=== PATIENT | female | born 2000 | race African-American/Black ===

== ENCOUNTER 2020-01-21 08:12 | Emergency (ER) | payer OTHER ==
[~2020-01-21] VITALS: Ht 170.2 cm; Wt 70.5 kg
[2020-01-21] MEDS ORDERED: IV NORMAL SALINE 1,000ML 1,000 ML IV ONE (08:30)
--- NOTE | 2020-01-21 08:53 | PHYS DOC ---
Past History Past Medical History: No Pertinent History Past Surgical History: No Surgical History Alcohol Use: None General Adult EDM: Chief Complaint: CHEST PAIN HPI: HPI: 19-year-old female presents with chest pain. She states that her pain started while she was trying to sleep. Started about 3 AM. She describes it as a burning in the center of her chest. She rates it a 7 out of 10. She denies diaphoresis or shortness of breath. She denies drug use. No cardiac history. She has had heartburn in the past, but not frequently and not severe. She denies fever chills. She has had a couple episodes of vomiting overnight that seemed to start for no reason. She was feeling fine yesterday. Review of Systems: Review of Systems: Constitutional: Denies fever or chills Eyes: Denies change in visual acuity HENT: Denies nasal congestion or sore throat Respiratory: Denies cough or shortness of breath Cardiovascular: Chest pain GI: Denies abdominal pain, nausea, vomiting, bloody stools or diarrhea : Denies dysuria Musculoskeletal: Denies back pain or joint pain Integument: Denies rash Neurologic: Denies headache, focal weakness or sensory changes Endocrine: Denies polyuria or polydipsia Lymphatic: Denies swollen glands Psychiatric: Denies depression or anxiety Heart Score: HEART Score for Chest Pain: HEART Score for Chest Pain Response (Comments) Value History Slighlty/Non-Suspicious 0 ECG Normal 0 Age < 45 0 Risk Factors No Risk Factors 0 Troponin < Normal Limit 0 Total 0 Risk Factors: Risk Factors: DM, Current or recent (<one month) smoker, HTN, HLP, family history of CAD, obesity. Risk Scores: Score 0 - 3: 2.5% MACE over next 6 weeks - Discharge Home Score 4 - 6: 20.3% MACE over next 6 weeks - Admit for Clinical Observation Score 7 - 10: 72.7% MACE over next 6 weeks - Early Invasive Strategies Current Medications: Current Meds: Current Medications Medications (Trade) Dose Ordered Sig/Romana Start Time Stop Time Status Last Admin Dose Admin Sodium Chloride 1,000 ml @ 1,000 mls/hr 1X ONCE 01/21/20 08:30 01/21/20 09:29 Allergies: Allergies: Allergies Coded Allergies Type Severity Reaction Last Updated Verified No Known Drug Allergies 01/21/20 No Physical Exam: PE: Constitutional: Well developed, well nourished, no acute distress, non-toxic appearance. [] HENT: Normocephalic, atraumatic, bilateral external ears normal, oropharynx moist, no oral exudates, nose normal. [] Eyes: PERRLA, EOMI, conjunctiva normal, no discharge. [] Neck: Normal range of motion, no tenderness, supple, no stridor. [] Cardiovascular:Heart rate regular rhythm, no murmur [] Lungs & Thorax: Bilateral breath sounds clear to auscultation [] Abdomen: Bowel sounds normal, soft, no tenderness, no masses, no pulsatile masses. [] Skin: Warm, dry, no erythema, no rash. [] Back: No tenderness, no CVA tenderness. [] Extremities: No tenderness, no cyanosis, no clubbing, ROM intact, no edema. [] Neurologic: Alert and oriented X 3, normal motor function, normal sensory function, no focal deficits noted. [] Psychologic: Affect normal, judgement normal, mood normal. [] Current Patient Data: Vital Signs: Vital Signs Date Time Temp Pulse Resp B/P (MAP) Pulse Ox O2 Delivery O2 Flow Rate FiO2 01/21/20 08:13 98.0 70 16 96/49 (65) 97 Room Air EKG: EKG: Sinus rhythm, rate 66, normal axis, no ST elevations or depressions. [] Radiology/Procedures: Radiology/Procedures: [] Impressions: CHEST AP ONLY Clinical Indication: Reason: CHEST PAIN / Spl. Instructions: / History: Comparison: None. Findings: The cardiomediastinal silhouette is normal. Lungs are clear. There is no pneumothorax. No pleural effusion is appreciated. No acute bone abnormality. IMPRESSION: No acute cardiopulmonary process. Electronically signed by: Ang De La Cruz MD (01/21/2020 8:59 AM) [id number] DICTATED AND SIGNED BY: ANG DE LA CRUZ MD DATE: 01/21/20 0859 CC: VICENTE GRANADO DO; ANGELICA LEI APRN ~ Course & Med Decision Making: Course & Med Decision Making Pertinent Labs and Imaging studies reviewed. (See chart for details) The patient's EKG is unremarkable. Her chest x-ray is unremarkable. Her labs are unremarkable. Her troponin is negative. This is the likely heartburn and/or pain from her vomiting. I have given her 20 mg of Pepcid and a GI cocktail. Her chest pain is improved. She has a bit of a headache and stomachache, and feels like she may just be coming down with a viral illness. This is possible. I do not see a likely cardiopulmonary process causing her symptoms. She is stable for discharge at this time. I will discharge her with a prescription for Zofran. [] Dragon Disclaimer: Dragon Disclaimer: This electronic medical record was generated, in whole or in part, using a voice recognition dictation system. Departure Departure: Impression: Primary Impression: Chest pain Qualified Codes: R07.9 - Chest pain, unspecified Additional Impression: Viral syndrome Disposition: HOME/RESIDENCE PRIOR TO ADM Condition: STABLE Referrals: ANGELICA LEI APRN (PCP) Patient Instructions: Chest Pain (Nonspecific), [id number]-[id number], Viral Syndrome Scripts Ondansetron (ONDANSETRON ODT) 4 Mg Tab.rapdis 1 TAB PO PRN Q6-8HRS PRN for VOMITING, #16 TAB Prov: VICENTE GRANADO DO 01/21/20 Justification of Admission: Justification of Admission: Justification of Admission Dx: No VICENTE GRANADO DO Jan 21, 2020 08:53
[2020-01-21 08:55] LABS: BASO % 0 % (0-3); EOS % 0 % (0-3); HEMATOCRIT 41.4 % (36.0-47.0); HEMOGLOBIN 13.8 g/dL (12.0-15.5); LYMPH # 1.7 x10^3/uL (1.0-4.8); LYMPH % 29 % (24-48); MEAN CORPUSCULAR HEMOGLOBIN 30 pg (25-35); MEAN CORPUSCULAR HGB CONC 33 g/dL (31-37); MEAN CORPUSCULAR VOLUME 89 fL (79-100); MONO # 0.5 x10^3/uL (0.0-1.1); MONO % 8 % (0-9); NEUT # 3.7 x10^3uL (1.8-7.7); NEUT % 62 % (31-73); PLATELET COUNT 278 x10^3/uL (140-400); RED BLOOD COUNT 4.66 x10^6/uL (3.50-5.40); RED CELL DISTRIBUTION WIDTH 13.7 % (11.5-14.5); WHITE BLOOD COUNT 5.9 x10^3/uL (4.0-11.0)
[2020-01-21] MEDS ORDERED: LIDO:MAALOX 1:1 20 ML SINGLE DOSE. PO ONE (09:00)
[2020-01-21] MEDS ORDERED: FAMOTIDINE 20 MG/2 ML VIAL IVP ONE (09:00)
--- NOTE | 2020-01-21 09:02 | RAD ---
CHEST AP ONLY Clinical Indication: Reason: CHEST PAIN / Spl. Instructions: / History: Comparison: None. Findings: The cardiomediastinal silhouette is normal. Lungs are clear. There is no pneumothorax. No pleural effusion is appreciated. No acute bone abnormality. IMPRESSION: No acute cardiopulmonary process. Electronically signed by: Ang Elizabeth MD (01/21/2020 8:59 AM) [id number]
[2020-01-21 09:05] LABS: ALBUMIN 3.9 g/dL (3.4-5.0); ALBUMIN/GLOBULIN RATIO 0.8 (1.0-1.7); CALCIUM 9.6 mg/dL (8.5-10.1); CREATININE 0.9 mg/dL (0.6-1.0); GFR 97.6; POTASSIUM 3.9 mmol/L (3.5-5.1); TOTAL PROTEIN 8.5 g/dL (6.4-8.2)
[2020-01-21] MEDS ORDERED: ONDANSETRON PF 4 MG/2 ML VIAL. IVP ONE (09:30)
[2020-01-21] MEDS ORDERED: ONDANSETRON PF 4 MG/2 ML VIAL. ONE (09:30)
--- NOTE | 2020-01-21 09:44 | EKG ---
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
[2020-01-21] MEDS ORDERED: ONDA4TAB12 PO (10:45)
[2020-01-21 11:00] VITALS: BP 134/69
[2020-01-21] MEDS ORDERED: PNV1TABL25 PO (23:25)
[2020-01-21] MEDS ORDERED: CEPH-263 PO (23:25)
[2020-01-21] MEDS ORDERED: PROM12.58 PO (23:27)
== END 2020-01-21 11:06 | disposition home or self-care (01) ==
LOC: ER 08:12
DX: R07.89 Other chest pain (principal); B34.9 Viral infection, unspecified; R11.10 Vomiting, unspecified
CPT/HCPCS: 36415; 71045; 80053; 84484; 85025; 93005; 96361; 96374; 96375; 99285; J2405; J3490; J7030

== ENCOUNTER 2020-01-21 22:25 | Emergency (ER) | payer OTHER ==
[~2020-01-21] VITALS: Ht 170.2 cm; Wt 70.5 kg
[~2020-01-21 22:25] MED LIST: ONDA4TAB12 PO
--- NOTE | 2020-01-21 22:30 | PHYS DOC ---
Past History Past Medical History: No Pertinent History Past Surgical History: No Surgical History Smoking: Non-smoker Alcohol Use: None General Adult EDM: Chief Complaint: abdominal discomfort HPI: HPI: Patient is a 19 year old female who presents for evaluation of generalized abdominal discomfort as well as nausea. This is the second time she is been to this ER in less than 24 hours. At that time she was evaluated for chest pain. Patient did have some episodes of vomiting today. Patient states she is here because she wants a test. Patient denies any vaginal bleeding or discharge. She states her last period was in December. Patient otherwise benign- appearing with stable vital signs. States she has not been in the past Review of Systems: Review of Systems: Constitutional: Denies fever or chills Eyes: Denies change in visual acuity HENT: Denies nasal congestion or sore throat Respiratory: Denies cough or shortness of breath Cardiovascular: recent chest pain, no edema GI: Mild abdominal pain with nausea and vomiting, no bloody stools or diarrhea : Denies dysuria Musculoskeletal: Denies back pain or joint pain Integument: Denies rash Neurologic: Denies headache, focal weakness or sensory changes Endocrine: Denies polyuria or polydipsia Lymphatic: Denies swollen glands Psychiatric: Denies depression or anxiety Heart Score: Risk Factors: Risk Factors: DM, Current or recent (<one month) smoker, HTN, HLP, family history of CAD, obesity. Risk Scores: Score 0 - 3: 2.5% MACE over next 6 weeks - Discharge Home Score 4 - 6: 20.3% MACE over next 6 weeks - Admit for Clinical Observation Score 7 - 10: 72.7% MACE over next 6 weeks - Early Invasive Strategies Allergies: Allergies: Allergies Coded Allergies Type Severity Reaction Last Updated Verified No Known Drug Allergies 01/21/20 No Physical Exam: PE: Constitutional: Well developed, well nourished, no acute distress, non-toxic appearance. [] HENT: Normocephalic, atraumatic, bilateral external ears normal, oropharynx moist, no oral exudates, nose normal. [] Eyes: PERRL, EOMI, conjunctiva normal, no discharge. [] Neck: Normal range of motion, no tenderness, supple, no stridor. [] Cardiovascular:Heart rate regular rhythm, no murmur [] Lungs & Thorax: Bilateral breath sounds clear to auscultation [] Abdomen: Bowel sounds normal, soft, no localized tenderness, no masses, no pulsatile masses. [] Skin: Warm, dry, no erythema, no rash. [] Back: No tenderness, no CVA tenderness. [] Extremities: No tenderness, no cyanosis, ROM intact, no edema. [] Neurologic: Alert and oriented X 3, normal motor function, normal sensory function, no focal deficits noted. [] Psychologic: Affect normal, judgement normal, mood normal. [] Current Patient Data: Labs: Laboratory Tests Test 01/21/20 22:35 01/21/20 22:49 Urine Collection Type Unknown Urine Color Yellow Urine Clarity Clear Urine pH 7.0 Urine Specific [place] 1.020 Urine Protein Neg Urine Glucose (UA) 250 mg/dL Urine Ketones (Stick) Neg mg/dL Urine Blood Neg Urine Nitrite Neg Urine Bilirubin Neg Urine Urobilinogen Dipstick 1.0 mg/dL Urine Leukocyte Esterase Small Urine RBC 0 /HPF Urine WBC 1-4 /HPF Urine Squamous Epithelial Cells Mod /LPF Urine Bacteria Few /HPF Bedside Urine HCG, Qualitative hcg positive EKG: EKG: [] Radiology/Procedures: Radiology/Procedures: [] Course & Med Decision Making: Course & Med Decision Making Pertinent Labs and Imaging studies reviewed. (See chart for details) [] Dragon Disclaimer: Dragon Disclaimer: This electronic medical record was generated, in whole or in part, using a voice recognition dictation system. Departure Departure: Impression: Primary Impression: Early stage of Additional Impressions: Acute UTI Nausea & vomiting Disposition: 01 HOME/RESIDENCE PRIOR TO ADM Condition: STABLE Referrals: ANGELICA LEI APRN (PCP) Patient Instructions: , Urinary Tract Infection, [id number] Additional Instructions: Drink plenty fluids, rest, call and see your REFORMATORY ATTENDANT right away and follow-up. You have a confirmed positive urine test. Scripts Promethazine Hcl (PROMETHAZINE HCL) 12.5 Mg Tablet 1 TAB PO Q6-8HRS for nausea and vomiting for 5 Days, #20 TAB 0 Refills Prov: ROSE SCHOFIELD DO 01/21/20 Pnv Cmb#95/Ferrous Fumarate/Fa ( TABLET) 1 Each Tablet 1 TAB PO DAILY for , #30 TAB 0 Refills Prov: ROSE SCHOFIELD DO 01/21/20 Cephalexin (KEFLEX) 250 Mg Capsule 1 CAP PO QID for UTI for 7 Days, #28 CAP 0 Refills Prov: ROSE SCHOFIELD DO 01/21/20 Justification of Admission: Justification of Admission: Justification of Admission Dx: N/A ROSE SCHOFIELD DO Jan 21, 2020 22:30
[2020-01-21 23:18] LABS: BACTERIA,URINE FEW /HPF (0-FEW); BILIRUBIN,URINE NEG (NEG); CLARITY,URINE CLEAR; COLOR,URINE YELLOW; GLUCOSE,URINE 250 mg/dL (NEG); NITRITE,URINE NEG (NEG); RBC,URINE 0 /HPF (0-2); SQUAMOUS EPITHELIAL CELL,UR MOD /LPF
[2020-01-21] MEDS ORDERED: PNV1TABL25 PO (23:25)
[2020-01-21] MEDS ORDERED: CEPH-263 PO (23:25)
[2020-01-21] MEDS ORDERED: PROM12.58 PO (23:27)
[2020-01-21 23:40] VITALS: BP 103/40
== END 2020-01-21 23:40 | disposition home or self-care (01) ==
LOC: ER 22:25
DX: O23.41 Unspecified infection of urinary tract in pregnancy, first trimester (principal); O21.9 Vomiting of pregnancy, unspecified; R10.9 Unspecified abdominal pain; Z3A.00 Weeks of gestation of pregnancy not specified
CPT/HCPCS: 81001; 81025; 99283

== ENCOUNTER 2020-06-25 20:44 | Emergency (ER) | payer OTHER ==
[~2020-06-25] VITALS: Ht 170.2 cm; Wt 70.5 kg
[~2020-06-25 20:44] MED LIST changes: +CEPH-263 PO; +PNV1TABL25 PO; +PROM12.58 PO
--- NOTE | 2020-06-25 21:06 | PHYS DOC ---
Past History Past Medical History: Anxiety, GERD (SHAYNE VERNON APRN) Past Surgical History: No Surgical History (SHAYNE VERNON APRN) Smoking: Non-smoker Alcohol Use: None (SHAYNE VERNON APRN) Adult General Chief Complaint Chief Complaint: CHEST PAIN HPI HPI Patient is a 20-year-old female patient with history of anxiety, acid reflux, who presents to the ED today complaining of a sharp 7 out of 10 epigastric and substernal chest pain, symptoms have been going on for 3 days. Also complaining of similar pain to the right upper quadrant. Denies any nausea or vomiting. Denies any fever, cough or congestion. Denies any chance she is . She states she believes this pain is from her acid reflux because she has been worked up before for the same pain and she was told she has acid reflux, she is currently on Prilosec and believes it is not working. (SHAYNE VERNON APRN) Review of Systems Review of Systems Constitutional: Denies fever or chills [] Eyes: Denies change in visual acuity, redness, or eye pain [] HENT: Denies nasal congestion or sore throat [] Respiratory: Denies cough or shortness of breath [] Cardiovascular: Reports chest pain GI: Reports right upper quadrant abdominal pain, denies nausea, vomiting, bloody stools or diarrhea [] : Denies dysuria or hematuria [] Musculoskeletal: Denies back pain or joint pain [] Integument: Denies rash or skin lesions [] Neurologic: Denies headache, focal weakness or sensory changes [] All other systems were reviewed and found to be within normal limits, except as documented in this note. (SHAYNE VERNON APRN) Allergies Allergies Allergies Coded Allergies Type Severity Reaction Last Updated Verified No Known Drug Allergies 06/25/20 No (SHAYNE VERNON APRN) Physical Exam Physical Exam Constitutional: Well developed, well nourished, no acute distress, non-toxic appearance. [] HENT: Normocephalic, atraumatic, bilateral external ears normal, oropharynx moist, no oral exudates, nose normal. [] Eyes: PERRLA, EOMI, conjunctiva normal, no discharge. [] Neck: Normal range of motion, no tenderness, supple, no stridor. [] Cardiovascular:Heart rate regular rhythm, no murmur [] Lungs & Thorax: Bilateral breath sounds clear to auscultation [] Abdomen: Bowel sounds normal, soft, no tenderness, no masses, no pulsatile masses. [] Skin: Warm, dry, no erythema, no rash. [] Back: No tenderness, no CVA tenderness. [] Extremities: No tenderness, no cyanosis, no clubbing, ROM intact, no edema. [] Neurologic: Alert and oriented X 3, normal motor function, normal sensory function, no focal deficits noted. [] Psychologic: Affect normal, judgement normal, mood normal. [] (SHAYNE VERNON APRN) Current Patient Data Vital Signs Vital Signs Date Time Temp Pulse Resp B/P (MAP) Pulse Ox O2 Delivery O2 Flow Rate FiO2 06/25/20 20:45 98.1 64 16 124/74 (91) 99 Room Air (SHAYNE VERNON APRN) EKG EKG [address] Jb Pool rhythm HR 62 no STEMI[] (SHAYNE VERNON APRN) Radiology/Procedures Radiology/Procedures [] (SHAYNE VERNON APRN) Heart Score HEART Score for Chest Pain: HEART Score for Chest Pain Response (Comments) Value History Slighlty/Non-Suspicious 0 ECG Normal 0 Age < 45 0 Risk Factors No Risk Factors 0 Troponin < Normal Limit 0 Total 0 Risk Factors: Risk Factors: DM, Current or recent (<one month) smoker, HTN, HLP, family history of CAD, obesity. Risk Scores: Risk Factors: DM, Current or recent (<one month) smoker, HTN, HLP, family history of CAD, obesity. (SHAYNE VERNON APRN) Course & Med Decision Making Course & Med Decision Making Pertinent Labs and Imaging studies reviewed. (See chart for details) This is a 20-year-old female patient with history of acid reflux and anxiety presented to the ED today with complaints of chest pain and right upper quadrant abdominal pain, she states this is chronic from acid reflux. Currently on Prilosec with no significant relief. Negative urine hCG, positive for UTI d/c on Bactrim. EKG is negative. PERC score 0, heart score 0. Troponin is normal. CMP with no acute findings. Chest x-ray is negative. Discharge to home. Encourage to continue taking Prilosec and follow-up with the PCP (SHAYNE VERNON APRN) Christa Disclaimer Dragon Disclaimer This electronic medical record was generated, in whole or in part, using a voice recognition dictation system. (SHAYNE VERNON APRN) PERC Rule for PE PERC Rule for PE Response (Comments) Value Age > 50: No 0 HR > 100: No 0 Sa02 on room air <95%: No 0 Unilateral leg swelling: No 0 Hemoptysis: No 0 Recent surgery or trauma: No 0 Prior PE or DVT: No 0 Hormone use: No 0 Total 0 Attending Co-Sign The patient was seen and interviewed as well as examined at the bedside. The chart was reviewed. The case was discussed. Agree with the plan of care. (VICENTE GRANADO DO) Departure Departure: Impression: Primary Impression: Chest pain Additional Impressions: Abdominal pain UTI (urinary tract infection) Gastroesophageal reflux disease Disposition: HOME SELF CARE/HOMELESS Condition: STABLE Referrals: PCP,UNKNOWN (PCP) follow up with your doctor in 1-2 weeks KEON KHAN MD follow up in 1-2 weeks Patient Instructions: Abdominal Pain (Nonspecific), Chest Pain (Nonspecific), [id number], Gastroesophageal Reflux Disease, Adult Additional Instructions: You were evaluated in the emergency room for chest pain and abdominal pain. Your work-up in the emergency room is negative for any acute findings. Continue taking Prilosec and follow-up with your primary care doctor in 1 week. Come back to the ED at any point symptoms worsen Scripts Sulfamethoxazole/Trimethoprim (BACTRIM DS TABLET) 1 Each Tablet 1 TAB PO BID for 3 Days, #6 TAB 0 Refills Prov: SHAYNE VERNON APRN 06/25/20 Problem Qualifiers Primary Impression: Chest pain Chest pain type: unspecified Qualified Codes: R07.9 - Chest pain, unspecified Additional Impressions: Abdominal pain Abdominal location: right upper quadrant Qualified Codes: R10.11 - Right upper quadrant pain UTI (urinary tract infection) Urinary tract infection type: site unspecified Hematuria presence: without hematuria Qualified Codes: N39.0 - Urinary tract infection, site not specified Gastroesophageal reflux disease Esophagitis presence: esophagitis presence not specified Qualified Codes: K21.9 - Gastro-esophageal reflux disease without esophagitis SHAYNE VERNON APRN Jun 25, 2020 21:06 VICENTE GRANADO DO Jun 26, 2020 00:02
--- NOTE | 2020-06-25 21:09 | EKG ---
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
[2020-06-25] MEDS ORDERED: LIDO:MAALOX 1:1 20 ML SINGLE DOSE. PO ONE (21:30)
[2020-06-25 21:34] LABS: CALCIUM 9.2 mg/dL (8.5-10.1); CREATININE 0.8 mg/dL (0.6-1.0); GFR 110.7; POTASSIUM 3.5 mmol/L (3.5-5.1)
[2020-06-25 21:37] VITALS: BP 119/76
[2020-06-25 21:40] LABS: ALBUMIN 3.8 g/dL (3.4-5.0); ALBUMIN/GLOBULIN RATIO 0.9 (1.0-1.7); TOTAL BILIRUBIN 0.3 mg/dL (0.2-1.0); TOTAL PROTEIN 8.1 g/dL (6.4-8.2)
[2020-06-25 21:41] LABS: BACTERIA,URINE MANY /HPF (0-FEW); BILIRUBIN,URINE NEG (NEG); CLARITY,URINE CLOUDY; COLOR,URINE YELLOW; GLUCOSE,URINE NEG (NEG); NITRITE,URINE POS (NEG); SQUAMOUS EPITHELIAL CELL,UR FEW /LPF; UROBILINOGEN,URINE 0.2 mg/dL (0.2 mg/dL)
[2020-06-25] MEDS ORDERED: SULF1TAB24 PO (21:50)
--- NOTE | 2020-06-25 21:53 | RAD ---
Exam: Chest one view INDICATION: Chest pain TECHNIQUE: Frontal view of the chest Comparisons: None FINDINGS: The cardiomediastinal silhouette and pulmonary vessels are within normal limits. The lung and pleural spaces are clear. IMPRESSION: No acute cardiopulmonary process. Electronically signed by: Smita Zhao MD (06/25/2020 9:50 PM) [facility]
== END 2020-06-25 22:00 | disposition home or self-care (01) ==
LOC: ER 20:44
DX: K21.9 Gastro-esophageal reflux disease without esophagitis (principal); N39.0 Urinary tract infection, site not specified; R07.2 Precordial pain; R10.11 Right upper quadrant pain; F41.9 Anxiety disorder, unspecified
CPT/HCPCS: 36415; 71045; 80053; 81001; 81025; 84484; 87086; 93005; 99285